=== PATIENT | female | born 1995 | race Caucasian/White ===

== ENCOUNTER 2020-12-07 12:26 | Emergency (ER) | payer BC, SELFPAY ==
[2020-12-07 14:55] VITALS: PULSE 89; RESP 19; TEMP 36.8; O2SAT 98; BMI 33.0
--- NOTE | 2020-12-07 15:33 | HMH.EDUTC ---
[facility] [place] Disposition Clinical Impression: Left conjunctivitis Qualifiers: Conjunctivitis type: unspecified Qualified Code(s): H10.9 - Unspecified conjunctivitis Disposition: Home, Self-Care Condition on Discharge: Good Instructions: How to Instill Eye Drops, DI for Conjunctivitis Additional Instructions: Use the eye drops as directed. Strict hand washing in the house hold, because conjunctivitis is very contagious. Follow up with your regular doctor. GO TO THE ER FOR ANY WORSENING SYMPTOMS OR CONCERNS Prescriptions: Moxifloxacin HCl [Vigamox] 1 drp EYE-LEFT TID 7 Days #3 ml Transmission Status: Received by [id number] Referrals: Cinthya Barroso PA [Primary Care Provider] - Forms: Work/School Release Time of Disposition: 15:38 Medical Decision Making - Medical Records Medical records reviewed: No: I reviewed the patient's medical records. - Erick Inquiry Pt receiving controlled substance: No Vital Signs: 12/07/20 14:55 12/07/20 15:43 Temperature 98.3 F 98.3 F Temperature Source Oral Pulse Rate 89 Pulse Rate [Left] 89 Respiratory Rate 19 19 Blood Pressure 134/89 02 Sat by Pulse Oximetry 98 [facility] [place] HPI - General Stated complaint: Eye infection Time Seen by Provider: 12/07/20 15:15 Mode of Arrival: Ambulatory Source of Information: Patient Limitations: No Limitations Description of Symptoms (Recalled from Triage Doc. by RN): L EYE BURNING, STINKING, SWELLING AND DRAINING GREEN PUS HEENT Symptoms (Recalled from RN notes): Yes (PT C/O L EYE IRRITATION, GREEN DRAINAGE, SWELLING, BURNING AND STINGING) Resp Symptoms (Recalled from RN notes): No Skin Symptoms (Recalled from RN notes): No MS Symptoms (Recalled from RN notes): No Functional Status (Recalled from RN notes): NA - History of Present Illness Provider Complaint: She states that for the past 2 days she has had left eye irritation and matting. She denies any injury or foreign body. - Related Data Home Medications Medication Instructions Recorded Confirmed PARoxetine HCL [Paxil 20mg Tablet] 45 mg PO DAILY 09/01/17 03/17/19 norgestimate-ethinyl estradioL 1 each PO DAILY 09/01/17 03/17/19 [Sprintec 28 Day Tablet] Spironolactone [Aldactone 50mg Tab] 50 mg PO DAILY 08/02/18 03/17/19 Topiramate [Topamax 100mg tablet] 100 mg PO DAILY 08/02/18 03/17/19 Previous Rx's Medication Instructions Recorded Moxifloxacin HCl [Vigamox] 1 drp EYE-LEFT TID 7 Days #3 ml 12/07/20 Allergies Allergy/AdvReac Type Severity Reaction Status Date / Time amoxicillin [From Augmentin] Allergy Verified 09/01/17 16:48 clavulanic acid Allergy Verified 09/01/17 16:48 [From Augmentin] Penicillins Allergy Verified 09/01/17 16:48 sulfamethoxazole Allergy Verified 09/01/17 16:48 [From Bactrim] trimethoprim [From Bactrim] Allergy Verified 09/01/17 16:48 - Worker's Comp Is this a Worker's Comp case?: No [facility] History - Hepatitis A Screen Drug use history?: No High risk sexual behaviors?: No History of sexually transmitted infection?: No Currently employed?: No Childcare worker?: No Do you have indoor plumbing?: Yes Do you have electricity?: Yes Attestation statement:: This patient has been screened for Hepatitis A risk factors. I have reviewed the patient's past medical history: Yes Medical History: Reports:: Migraine Denies:: Cancer, Diabetes Mellitus Type 1, Diabetes Mellitus Type 2, MRSA Laterality Cases: Right: Arthroscopy Shoulder Amputation: No Fractures: No - Social History Smoking Status: Never smoker Alcohol Intake: never Occupational Status: employed ROS Obtained: Yes All systems reviewed & no additional complaints - Constitutional Constitutional: Denies chills, Denies fever(s) - Eyes Eyes: Reports as per HPI - ENT Ears, Nose, Mouth, and Throat: Denies dizziness, Denies otalgia, Denies sore throat - Cardiovascular Cardiovascular: Denies chest pain - Respiratory Respiratory:
[2020-12-07 15:43] VITALS: BP 134/89; PULSE 89; RESP 19; TEMP 36.8
== END 2020-12-07 15:42 | disposition home or self-care (01) ==
PROVIDERS: Emergency Provider Nurse Practitioner Family; PCP Physician Assistant Medical
DX: H10.32 Unspecified acute conjunctivitis, left eye (principal); G43.709 Chronic migraine without aura, not intractable, without status migrainosus; Z79.899 Other long term (current) drug therapy
CPT/HCPCS: 99202; G0463

== ENCOUNTER 2021-03-15 18:46 | Emergency (ER) | payer MEDICAID, SELFPAY ==
[2021-03-15 19:59] VITALS: BP 132/95; PULSE 87; RESP 18; TEMP 36.8; O2SAT 98; BMI 32.8
[2021-03-15 20:08] LABS: Apearance,Urine Cloudy (Clear); Color,Urine Dark Yellow (Yellow)
[2021-03-15 20:09] LABS: Bilirubin,Urine Negative (Negative); Blood, Urine 3+ (Negative); Glucose,Urine (UA) Negative (Negative); Ketones,Urine Negative (Negative); PH,Urine 5.5 (5.0-8.5); Protein,Urine 1+ (Negative); Specific Gravity, Urine > 1.030 (1.005-1.030); UTC Leukocyte Esterase,Urine Trace (Negative); UTC Nitrate,Urine Negative (Negative); Urobilinogen,Urine 0.2 EU/dl (0.2)
--- NOTE | 2021-03-15 20:30 | HMH.EDUTC ---
[facility] [place] Clinical Impression: Vaginal yeast infection UTI (urinary tract infection) Qualifiers: Urinary tract infection type: site unspecified Hematuria presence: with hematuria Qualified Code(s): N39.0 - Urinary tract infection, site not specified Disposition: Home, Self-Care Condition on Discharge: Good Instructions: Vaginal Yeast Infection, DI for Urinary Tract Infection (UTI) Additional Instructions: *Increase fluids. Water not Soda or Tea *Start antibiotic immediately and be sure to take as ordered for the FULL length of time although you should start to see improvement over the next 48 hours *Pyridium as needed Remember this medication will turn your urine [place]. This is normal but it will stain what ever it gets on *You should not use Pyridium for more than 48 hours. If so , follow up with your primary physician to review urine culture and ensure that antibiotic is adequate for infection *Be SURE to follow up anytime for new or worsening symptoms with your family doctor. AND in 48 hours for urine culture results with your family doctor, if you do not have a doctor then you may call back to the [facility] for urine culture results and further treatment. We do recommend that you choose and establish care with a Primary Care Physician. AND follow up with them in 10-14 days to repeat UA to ensure infection is resolved and blood no longer present *Be sure to let your PCP know that we sent urine cultures from the [facility] so they can follow up to ensure that you area the on the correct antibiotic Call your doctor office and make appointment for 48 hours (2 days from today) to follow up and get the results of your urine culture and further treatment Prescriptions: Fluconazole [Diflucan 150mg tab] 150 mg PO DIRECTED #2 tab Prescription Printed Nitrofurantoin Monohyd/M-Cryst [Macrobid 100 mg Capsule] 100 mg PO BID 10 Days #20 cap Prescription Printed Phenazopyridine HCl [Pyridium 200mg Tablet] 200 pow PO TID #6 tab Prescription Printed Referrals: Provider,Referral, MD [Primary Care Provider] - As needed Forms: Work/School Release Time of Disposition: 20:37 Medical Decision Making - Erick Inquiry Pt receiving controlled substance: No Erick was queried for this patient: No Vital Signs: 03/15/21 19:59 Temperature 98.2 F Temperature Source Oral Pulse Rate [Left] 87 Respiratory Rate 18 Blood Pressure [Right Arm] 132/95 H Blood Pressure Mean [Right Arm] 107 02 Sat by Pulse Oximetry 98 - Lab Data Lab results reviewed: Yes: I reviewed the patient's lab results. Lab Results 03/15/21 20:08: Urine Color Dark yellow, Urine Appearance Cloudy, Urine pH 5.5, Ur Specific [place] > 1.030 H, Urine Protein 1+, Urine Glucose (UA) Negative, Urine Ketones Negative, Urine Blood 3+, Urine Nitrate Negative, Urine Bilirubin Negative, Urine Urobilinogen 0.2, Ur Leukocyte Esterase Trace Orders (Tests/Meds): ORDERS Category Date Time Status Urine Culture Stat Micro 03/15/21 20:08 Ordered Medical Decision Narrative: Patient state that she is current coming off her period still spotting [facility] [place] - General Stated complaint: Possible UTI Time Seen by Provider: 03/15/21 20:30 Mode of Arrival: Ambulatory Source of Information: Patient Limitations: No Limitations Description of Symptoms (Recalled from Triage Doc. by RN): pt c/o urinary frequency, vaginal burning/itching/discharge and nausea. x2 days. HEENT Symptoms (Recalled from RN notes): No Resp Symptoms (Recalled from RN notes): No Skin Symptoms (Recalled from RN notes): No MS Symptoms (Recalled from RN notes): No Functional Status (Recalled from RN notes): wnl - History of Present Illness Provider Complaint: Patient state that she thinks she may have a yeast infection and UTI State she has been having burning with urination, redness and irritation in vaginal area with white cottage cheese like discharge State that it has continued to irritate her al
[2021-03-15 20:59] VITALS: BP 132/95; PULSE 87; RESP 18; TEMP 36.8
== END 2021-03-15 21:01 | disposition home or self-care (01) ==
PROVIDERS: Emergency Provider Nurse Practitioner
DX: N30.00 Acute cystitis without hematuria (principal); B37.3 Candidiasis of vulva and vagina
CPT/HCPCS: 81003; 87086; 87088; 87186; 99202; G0463

== ENCOUNTER 2023-10-13 12:45 | Emergency (ER) | payer BC, SELFPAY ==
[2023-10-13 13:15] VITALS: BP 118/77; PULSE 77; RESP 20; TEMP 36.6; O2SAT 96; BMI 33.0
--- NOTE | 2023-10-13 13:34 | EXP.UTC ---
Discharge Plan Disposition Patient Disposition: Home, Self-Care Condition: Good Prescriptions Prescriptions: New prednisone 10 mg tablet 10 mg PO BID 3 Days Qty: 6 0RF doxycycline hyclate 100 mg capsule 100 mg PO Q12 10 Days Qty: 20 0RF xtlhkaaqcscsyyu-ysijgoeih-ZH [Bromfed DM] 2-30-10 mg/5 mL Syrup 5 ml PO Q6H PRN (Reason: Cough) Qty: 240 0RF ondansetron 4 mg Tablet,Disintegrating 4 mg PO Q8H PRN (Reason: Nausea) Qty: 12 0RF fluconazole 150 mg tablet 150 mg PO ONCE Qty: 1 3RF No Action trazodone 50 mg tablet 50 mg PO DAILY levothyroxine 50 mcg tablet 50 mcg PO DAILY propranolol 20 mg tablet 20 mg PO DAILY sertraline 50 mg tablet 50 mg PO DAILY naratriptan 2.5 mg tablet 2.5 mg PO DAILY Nurtec ODT 75 mg tablet,disintegrating 75 mg PO DAILY topiramate 100 MG tablet 100 mg PO DAILY spironolactone 50 MG tablet 50 mg PO DAILY Referrals Follow up/Referrals: Cinthya Barroso PA [Primary Care Provider] - See instructions Activity Restrictions/Add. Instructions Additional Instructions/Restrictions: Drink plenty of fluids. Take tylenol or ibuprofen for pain or fever. Take the medications as directed. Follow up with your regular doctor. GO TO THE ER FOR ANY WORSENING SYMPTOMS Clinical Impressions Clinical Impression: Sinusitis Stand Alone Forms Stand Alone Forms: Work/School Release Discharge ED Provider: Emir Cardenas [facility] General Stated complaint: congestion cough dizziness difficulty urinating Mode of Arrival: Ambulatory Source of Information: Patient Limitations: No Limitations Time Seen by Provider: 10/13/23 13:34 Description of Symptoms (Recalled from Triage Doc. by RN): PATIENT C/O FREQUENT URINATION, NAUSEA, CHEST CONGESTION, SORE THROAT, EAR PAIN, HEADACHE, SINUS PRESSURE, BODY ACHES, VOMITING, AND FEELING LIGHT-HEADED SINCE SATURDAY EVENING HEENT Symptoms (Recalled from RN notes): Yes Resp Symptoms (Recalled from RN notes): No Skin Symptoms (Recalled from RN notes): No MS Symptoms (Recalled from RN notes): No Functional Status (Recalled from RN notes): WNL History of Present Illness Provider Complaint: She states that for the past 5 days she has had worsening sinus congestion, ear pain, and sore throat. She also is having urinary frequency and nausea, but she believes these are side effects of the medication zoloft that she started on last week. Related Data Home Medications Medication Instructions Recorded Confirmed spironolactone 50 mg tablet 50 mg PO DAILY acne 08/02/18 10/13/23 topiramate 100 mg tablet 100 mg PO DAILY migraines 08/02/18 10/13/23 levothyroxine 50 mcg tablet 50 mcg PO DAILY 10/13/23 10/13/23 naratriptan 2.5 mg tablet 2.5 mg PO DAILY 10/13/23 10/13/23 propranolol 20 mg tablet 20 mg PO DAILY 10/13/23 10/13/23 rimegepant 75 mg disintegrating 75 mg PO DAILY 10/13/23 10/13/23 tablet (Nurtec ODT) sertraline 50 mg tablet 50 mg PO DAILY 10/13/23 10/13/23 trazodone 50 mg tablet 50 mg PO DAILY 10/13/23 10/13/23 Previous Rx's Medication Instructions Recorded neqjhmxnsearkig-qdtefifrlfzlivv-FG 5 ml PO Q6H PRN Cough #240 mL 10/13/23 2 mg-30 mg-10 mg/5 mL oral syrup (Bromfed DM) doxycycline hyclate 100 mg capsule 100 mg PO Q12 10 days #20 caps 10/13/23 fluconazole 150 mg tablet 150 mg PO ONCE 1 dose #1 tab 10/13/23 ondansetron 4 mg disintegrating 4 mg PO Q8H PRN Nausea #12 tabs 10/13/23 tablet prednisone 10 mg tablet 10 mg PO BID 3 days #6 tabs 10/13/23 Allergies Allergy/AdvReac Type Severity Reaction Status Date / Time amoxicillin [From Augmentin] Allergy Verified 09/01/17 16:48 clavulanic acid Allergy Verified 09/01/17 16:48 [From Augmentin] Penicillins Allergy Verified 09/01/17 16:48 sulfamethoxazole Allergy Verified 09/01/17 16:48 [From Bactrim] trimethoprim [From Bactrim] Allergy Verified 09/01/17 16:48 Worker's Comp Is this a Worker's Comp case?: No [facility] Disclaimer: The information contained in this section may have been updated after the patient was seen, as this information can be updated by other users. Medical History (Updated 10/13/23 @ 13:55 by Emir Cardenas APRN) Thyroid disease UTI (urinary tract infection) Depression Anxiety Migraine Social History Smoking Status: Never smoker alcohol intake: never current occupational status: employed Travel in the last 8 weeks: None ROS Obtained: Yes All systems reviewed & no additional complaints except as documented Constitutional Constitutional: Reports poor appetite Eyes Eyes: Reports system reviewed and no additional complaints, except as documented ENT Ears, Nose, Mouth, and Throat: Reports as per HPI Cardiovascular Cardiovascular: Reports system reviewed and no additional complaints, except as documented and Denies chest pain Respiratory Respiratory: Denies shortness of breath, Denies chest congestion, Reports cough, Denies stridor and Denies wheezing Gastrointestinal Gastrointestingal: Reports system reviewed and no additional complaints, except as documented; Denies abdominal pain, diarrhea or vomiting Musculoskeletal Musculoskeletal: Reports system reviewed and no additional complaints, except as documented and Denies arthralgias Integumentary/Breasts Skin/Breast: Reports system reviewed and no additional complaints, except as documented and Denies rash Neurologic Neurologic: Denies paresthesias Allergic/Immunologic Allergic/Immunologic: Denies wheezing Physical Exam General General appearance: alert and in no apparent distress Eye Eye exam: Present normal appearance, PERRL and EOMI ENT ENT exam: Present mucous membranes moist and normal external ear exam Expanded ENT Exam External ear exam: Present normal external inspection TM/Canal exam: Bilateral TM: erythema and bulging Nose exam: Absent sinus tenderness Nasal speculum exam: Bilateral: normal Mouth exam: Present normal external inspection; Absent drooling Teeth exam: Present normal inspection Throat exam: Present tonsillar erythema and tonsillomegaly Neck Neck exam: Present normal inspection, full ROM and trachea midline; Absent tenderness, lymphadenopathy or thyromegaly Chest Chest inspection: Present normal inspection and symmetric chest wall rise; Absent tenderness or rash Respiratory Respiratory exam: Present normal lung sounds bilaterally; Absent respiratory distress, wheezes, stridor or accessory muscle use Cardiovascular Cardiovascular exam: Present regular rate, normal rhythm and normal heart sounds Abdominal Exam Abdominal exam: Present soft; Absent distention, tenderness, guarding, rebound or rigidity Extremities Exam Extremities exam: Present normal inspection, full ROM and normal capillary refill; Absent tenderness or calf tenderness Back Exam Back exam: Present normal inspection and full ROM; Absent tenderness Neurological Exam Neurological exam: Present alert and oriented X3 Psychiatric Psychiatric exam: Present normal affect and normal mood Skin Skin exam: Present warm, dry, intact and normal color Lymphatic Lymphatic Findings: no adenopathy Medical Decision Making Medical Records Medical records reviewed: No I reviewed the patient's medical records. Erick Inquiry Pt receiving controlled substance: No Vital Signs: 10/13/23 13:15 Temperature 97.8 F Temperature Source Oral Pulse Rate [Left Brachial] 77 Respiratory Rate 20 Blood Pressure [Left Arm] 118/77 Blood Pressure Mean [Left Arm] 90 Blood Pressure Source [Left Arm] Automatic Cuff Blood Pressure Position [Left Arm] Sitting 02 Sat by Pulse Oximetry 96 Oxygen Delivery Method Room Air Lab Data Lab results reviewed: Yes I reviewed the patient's lab results.
[2023-10-13 13:53] VITALS: BP 118/77; PULSE 77; RESP 20; TEMP 36.6; O2SAT 96
[2023-10-13 14:43] LABS: Apearance,Urine Cloudy (Clear); Bilirubin,Urine Negative (Negative); Blood, Urine Trace (Negative); Color,Urine Dark Yellow (Yellow); Glucose,Urine (UA) Negative (Negative); Ketones,Urine Negative (Negative); Protein,Urine 1+ (Negative); Specific Gravity, Urine >= 1.030 (1.005-1.030); Urobilinogen,Urine 0.2 EU/dl (0.2)
[2023-10-13 14:44] LABS: UTC Leukocyte Esterase,Urine Negative (Negative); UTC Nitrate,Urine Negative (Negative); UTC Pregnancy Test, Urine Negative (Negative)
== END 2023-10-13 13:59 | disposition home or self-care (01) ==
PROVIDERS: Emergency Provider Nurse Practitioner Family; PCP Physician Assistant Medical
DX: J01.90 Acute sinusitis, unspecified (principal); R07.0 Pain in throat; R11.0 Nausea
CPT/HCPCS: 81003; 81025; 99212; 99214; G0463

== ENCOUNTER 2024-02-18 10:15 | Emergency (ER) | payer MEDICAID, SELFPAY ==
--- NOTE | 2024-02-18 11:41 | EXP.UTC ---
Discharge Plan Disposition Patient Disposition: Home, Self-Care Condition: Good Prescriptions Prescriptions: New ondansetron 4 mg Tablet,Disintegrating 4 mg PO Q8H PRN (Reason: Nausea) Qty: 12 0RF fcmpczfwbmfgbeh-phopntybc-AN [Bromfed DM] 2-30-10 mg/5 mL Syrup 5 ml PO Q6H PRN (Reason: Cough) Qty: 240 0RF No Action trazodone 50 mg tablet 50 mg PO DAILY levothyroxine 50 mcg tablet 50 mcg PO DAILY propranolol 20 mg tablet 20 mg PO DAILY sertraline 50 mg tablet 50 mg PO DAILY naratriptan 2.5 mg tablet 2.5 mg PO DAILY Nurtec ODT 75 mg tablet,disintegrating 75 mg PO DAILY prednisone 10 mg tablet 10 mg PO BID 3 Days Qty: 6 0RF doxycycline hyclate 100 mg capsule 100 mg PO Q12 10 Days Qty: 20 0RF ghcvwdlwylqdshe-smykbjqxf-PX [Bromfed DM] 2-30-10 mg/5 mL Syrup 5 ml PO Q6H PRN (Reason: Cough) Qty: 240 0RF ondansetron 4 mg Tablet,Disintegrating 4 mg PO Q8H PRN (Reason: Nausea) Qty: 12 0RF fluconazole 150 mg tablet 150 mg PO ONCE Qty: 1 3RF topiramate 100 MG tablet 100 mg PO DAILY spironolactone 50 MG tablet 50 mg PO DAILY Referrals Follow up/Referrals: Cinthya Barroso PA [Primary Care Provider] - See instructions Activity Restrictions/Add. Instructions Additional Instructions/Restrictions: Drink plenty of fluids. Take tylenol or ibuprofen for pain or fever. Take the medications as directed. Follow up with your regular doctor. GO TO THE ER FOR ANY WORSENING SYMPTOMS Clinical Impressions Clinical Impression: Acute viral syndrome Stand Alone Forms Stand Alone Forms: Work/School Release Instructions Patient Instructions: DI for Viral Syndrome, Ondansetron, Benzonatate Print Language Print Language: Burkinan Discharge ED Provider: Emir Cardenas [facility] [place] General Stated complaint: fever, upset stomach, migraine Time Seen by Provider: 02/18/24 11:41 Related Data Home Medications ?Medication ?Instructions ?Recorded ?Confirmed spironolactone 50 mg tablet 50 mg PO DAILY acne 08/02/18 10/13/23 topiramate 100 mg tablet 100 mg PO DAILY migraines 08/02/18 10/13/23 levothyroxine 50 mcg tablet 50 mcg PO DAILY 10/13/23 10/13/23 naratriptan 2.5 mg tablet 2.5 mg PO DAILY 10/13/23 10/13/23 propranolol 20 mg tablet 20 mg PO DAILY 10/13/23 10/13/23 rimegepant 75 mg disintegrating 75 mg PO DAILY 10/13/23 10/13/23 tablet (Nurtec ODT) sertraline 50 mg tablet 50 mg PO DAILY 10/13/23 10/13/23 trazodone 50 mg tablet 50 mg PO DAILY 10/13/23 10/13/23 Previous Rx's ?Medication ?Instructions ?Recorded tucebtbluqqqcns-bpizggzbghpkujz-QX 5 ml PO Q6H PRN Cough #240 mL 10/13/23 2 mg-30 mg-10 mg/5 mL oral syrup (Bromfed DM) doxycycline hyclate 100 mg capsule 100 mg PO Q12 10 days #20 caps 10/13/23 fluconazole 150 mg tablet 150 mg PO ONCE 1 dose #1 tab 10/13/23 ondansetron 4 mg disintegrating 4 mg PO Q8H PRN Nausea #12 tabs 10/13/23 tablet prednisone 10 mg tablet 10 mg PO BID 3 days #6 tabs 10/13/23 dxlucewbpjzggwg-snmgadzdfgckbip-TJ 5 ml PO Q6H PRN Cough #240 mL 02/18/24 2 mg-30 mg-10 mg/5 mL oral syrup (Bromfed DM) ondansetron 4 mg disintegrating 4 mg PO Q8H PRN Nausea #12 tabs 02/18/24 tablet Allergies Allergy/AdvReac Type Severity Reaction Status Date / Time amoxicillin [From Augmentin] Allergy Verified 09/01/17 16:48 clavulanic acid Allergy Verified 09/01/17 16:48 [From Augmentin] Penicillins Allergy Verified 09/01/17 16:48 sulfamethoxazole Allergy Verified 09/01/17 16:48 [From Bactrim] trimethoprim [From Bactrim] Allergy Verified 09/01/17 16:48 PFSH PFS Disclaimer: The information contained in this section may have been updated after the patient was seen, as this information can be updated by other users. Medical History (Updated 02/18/24 @ 12:06 by Emir Cardenas APRN) Thyroid disease UTI (urinary tract infection) Depression Anxiety Migraine Social History Smoking Status: Never smoker alcohol intake: never current occupational status: employed Travel in the last 8 weeks: None ROS Obtained: Yes All systems reviewed & no additional complaints except as documented Constitutional Constitutional: Reports chills and Reports fever(s) Eyes Eyes: Denies eye discharge ENT Ears, Nose, Mouth, and Throat: Reports as per HPI Cardiovascular Cardiovascular: Denies chest pain Respiratory Respiratory: Denies chest congestion and Reports cough Gastrointestinal Gastrointestingal: Reports nausea; Denies abdominal pain, constipation, cramping, diarrhea or vomiting Musculoskeletal Musculoskeletal: Denies arthralgias Integumentary/Breasts Skin/Breast: Denies rash Neurologic Neurologic: Denies paresthesias Physical Exam General General appearance: alert and in no apparent distress Head Head exam: atraumatic, normocephalic and normal inspection Eye Eye exam: Present normal appearance, PERRL and EOMI ENT ENT exam: Present normal exam, normal oropharynx, mucous membranes moist, TM's normal bilaterally and normal external ear exam Neck Neck exam: Present normal inspection, full ROM and trachea midline; Absent meningismus or lymphadenopathy Chest Chest inspection: Present normal inspection and symmetric chest wall rise; Absent tenderness Respiratory Respiratory exam: Present normal lung sounds bilaterally; Absent respiratory distress Cardiovascular Cardiovascular exam: Present regular rate and normal rhythm; Absent JVD Abdominal Exam Abdominal exam: Present soft and normal bowel sounds; Absent distention, tenderness or guarding Extremities Exam Extremities exam: Present normal inspection, full ROM and normal capillary refill; Absent calf tenderness Back Exam Back exam: Present normal inspection; Absent tenderness Neurological Exam Neurological exam: Present alert and oriented X3 Psychiatric Psychiatric exam: Present normal affect and normal mood Skin Skin exam: Present warm, dry, intact and normal color Lymphatic Lymphatic Findings: no adenopathy Medical Decision Making Medical Records Medical records reviewed: No I reviewed the patient's medical records. Screening: Per USPSTF and CDC recommendations, given the prevalence of disease in our region, it is our hospital?s policy to screen for HIV and viral Hepatitis for all patients aged 18 and over and those with ongoing risk factors. Erick Inquiry Pt receiving controlled substance: No Lab Data Lab results reviewed: Yes I reviewed the patient's lab results.
[2024-02-18 11:45] VITALS: BP 167/114; PULSE 79; RESP 18; TEMP 36.7; O2SAT 99; BMI 36.0
[2024-02-18 12:02] LABS: UTC Influenza A Antigen Negative (Negative); UTC Influenza B Antigen Negative (Negative)
[2024-02-18 12:15] LABS: UTC Strep Screen (Rapid) Negative (Negative)
[2024-02-18 12:25] VITALS: BP 167/114; PULSE 79; RESP 18; TEMP 36.7
[2024-02-18 12:25] LABS: Coronavirus 19, PCR Not Detected (NotDetected); Influenza A, PCR Not Detected (NotDetected); Influenza B, PCR Not Detected (NotDetected)
== END 2024-02-18 12:25 | disposition home or self-care (01) ==
PROVIDERS: Emergency Provider Nurse Practitioner Family; PCP Physician Assistant Medical
DX: B34.9 Viral infection, unspecified (principal)
CPT/HCPCS: 87636; 87804; 87880; 99213; G0381